=== PATIENT | female | born 1940 | race Hispanic/Latino ===

== ENCOUNTER 2018-03-30 05:45 | Inpatient (IN) | payer MEDICARE, BC ==
--- NOTE | 2018-03-30 06:01 | ED PDOC ---
Arrival/HPI - General Chief Complaint: Chest Pain Time Seen by Provider: 03/30/18 05:49 Historian: Patient - History of Present Illness Narrative History of Present Illness (Text): 03/30/18 05:53 A 78 year old female whose past medical history includes A- Fib, HTN, DM, presents to the emergency department with a complaint of sudden onset chest pressure. The patient notes that the discomfort woke her from her sleep at around 2 AM. She states that the chest pressure was associated with belching for which she took Pepcid and Aspirin with no relief of her symptoms. Patient notes that when she took a deep breath hours after, it was painful, which prompted her to come into the emergency department for further evaluation. The patient denies fevers, chills, headache, dizziness, sore throat, cough, shortness of breath, dyspnea on exertion, abdominal pain, nausea, vomiting, diarrhea, neck/back pain, urinary/bowel changes or any other complaint. PMD: Dr. Lopez Ice Hockey Coach: Dr. Escobar Time/Duration: 4-6 hours Symptom Onset: Sudden Symptom Course: Unchanged Activities at Onset: Rest, Light Context: Home Past Medical History - Provider Review Nursing Documentation Reviewed: Yes - Infectious Disease Hx of Infectious Diseases: None - Cardiac Hx Atrial Fibrillation: Yes Hx Hypertension: Yes - Endocrine/Metabolic Hx Diabetes Mellitus Type 2: Yes - Psychiatric Hx Substance Use: No - Past Surgical History Past Surgical History: No Previous - Anesthesia Hx Anesthesia: No Family/Social History - Physician Review Nursing Documentation Reviewed: Yes Family/Social History: No Known Family HX Smoking Status: Never Smoked Hx Alcohol Use: Yes Frequency of alcohol use: Socially Hx Substance Use: No Hx Substance Use Treatment: No Allergies/Home Meds Allergies/Adverse Reactions: Allergies No Known Allergies Allergy (Verified 12/15/11 13:33) Home Medications: Home Meds Medication Instructions Recorded Confirmed Alprazolam 0.5 mg PO DAILY 07/02/12 03/30/18 Aspirin [[facility]] 81 mg PO DAILY 07/02/12 03/30/18 Diltiazem HCl [Matzim LA] 240 mg PO DAILY 07/02/12 03/30/18 Nebivolol [Bystolic] 10 mg PO DAILY 07/02/12 03/30/18 Pitavastatin Calcium [Livalo] 4 mg PO DAILY 07/02/12 03/30/18 Dronedarone [Multaq] 400 mg PO DAILY 03/30/18 03/30/18 Dulaglutide [Trulicity] 0.5 ml SQ QWK 03/30/18 03/30/18 Empagliflozin [Jardiance] 10 mg PO DAILY 03/30/18 03/30/18 FLUoxetine [Prozac] 20 mg PO DAILY 03/30/18 03/30/18 metFORMIN [glucOPHAGE] 500 mg PO BID 03/30/18 03/30/18 Review of Systems - Physician Review All systems were reviewed & negative as marked: Yes - Review of Systems Constitutional: absent: Fevers ENT: absent: Sore Throat Respiratory: absent: SOB, Cough Cardiovascular: Chest Pain (Chest Pressure). absent: JUNIOR Gastrointestinal: Other (Belching). absent: Abdominal Pain, Stool Changes, Diarrhea, Nausea, Vomiting Genitourinary Female: absent: Urine Output Changes Musculoskeletal: absent: Back Pain, Neck Pain Neurological: absent: Headache, Dizziness Physical Exam Appearance: Positive for: Well-Appearing, Non-Toxic, Comfortable Pain Distress: None Mental Status: Positive for: Alert and Oriented X 3 - Systems Exam Head: Present: Atraumatic, Normocephalic Pupils: Present: PERRL Extroacular Muscles: Present: EOMI Conjunctiva: Present: Normal Mouth: Present: Moist Mucous Membranes Neck: Present: Normal Range of Motion Respiratory/Chest: Present: Clear to Auscultation, Good Air Exchange. No: Respiratory Distress, Accessory Muscle Use Cardiovascular: Present: Regular Rate and Rhythm, Normal S1, S2. No: Murmurs Abdomen: No: Tenderness, Distention, Peritoneal Signs Back: Present: Normal Inspection Upper Extremity: Present: Normal Inspection. No: Cyanosis, Edema Lower Extremity: Present: Normal Inspection. No: Edema Neurological: Present: GCS=15, CN II-XII Intact, Speech Normal Skin: Present: Warm, Dry, Normal Color. No: Rashes Psychiatric: Present: Alert, Oriented x 3, Normal Insight, Normal Concentration Medical Decision Making ED Course and Treatment: 03/30/18 06:02 Impression: A 78 year old female presents to the emergency department with a complaint of sudden onset chest pressure. Plan: -- Reassess and disposition Progress Notes: 03/30/18 07:00 Case endorsed to /pending labs/reassess/final disposition - RAD Interpretation Radiology Orders: 03/30/18 06:19 CHEST PORTABLE [RAD] Stat - EKG Interpretation EKG Interpretation (Text): 03/30/18 06:00 EKG-NSR@86,LVH,prolonged QT,NSSTT changes Interpreted by ED Physician: Yes Type: 12 lead EKG - Scribe Statement The provider has reviewed the documentation as recorded by the Scribe Diana Matias Provider Scribe Attestation: All medical record entries made by the Scribe were at my direction and personally dictated by me. I have reviewed the chart and agree that the record accurately reflects my personal performance of the history, physical exam, medical decision making, and the department course for this patient. I have also personally directed, reviewed, and agree with the discharge instructions and disposition. Disposition/Present on Arrival - Present on Arrival Any Indicators Present on Arrival: No History of DVT/PE: No History of Uncontrolled Diabetes: No Urinary Catheter: No History of Decub. Ulcer: No History Surgical Site Infection Following: None - Disposition Have Diagnosis and Disposition been Completed?: No Diagnosis: Chest pain Disposition Time: 07:00 Patient Problems: Current Active Problems Problem Status Onset Chest pain Acute Condition: STABLE Discharge Instructions (ExitCare): Chest Pain (ED) Referrals: Tim Lopez MD [Primary Care Provider] - Follow up with primary Forms: [employer] (Polish)
[2018-03-30 07:05] LABS: ALB/GLOB RATIO 1.4 (1.1-1.8); ALBUMIN 4.2 g/dL (3.0-4.8); ALT/SGPT 25 U/L (7-56); AST/SGOT 19 U/L (14-36); BLOOD UREA NITROGEN 18 mg/dL (7-21); CALCIUM 9.1 mg/dL (8.4-10.5); GFR NON-AFRICAN AMERICAN > 60
[2018-03-30 07:09] LABS: HEMOGLOBIN 14.1 g/dL (12.0-16.0); MEAN CELL VOLUME 92.7 fl (80.0-105.0); MEAN CORPUSCULAR HEMOGLOBIN 31.3 pg (25.0-35.0); MEAN CORPUSCULAR HGB CONC 33.7 g/dl (31.0-37.0); MEAN PLATELET VOLUME 10.2 fl (7.0-11.0); RBC 4.51 10^6/uL (3.5-6.1); RED CELL DISTRIBUTION WIDTH 12.9 % (11.5-14.5); WHITE BLOOD COUNT 13.1 10^3/ul (4.5-11.0)
--- NOTE | 2018-03-30 07:12 | ED PDOC ---
Physical Exam Vital Signs Temp Pulse Resp BP Pulse Ox 03/30/18 07:27 98.2 F 82 16 141/51 L 96 03/30/18 05:52 98.4 F 84 18 159/69 H 96 Medical Decision Making ED Course and Treatment: 03/30/18 07:28 Patient endorsed to me by Dr. Tanner. Patient re-evaluated on exam. Her lungs are clear. She has equal blood pressure and pulses in both upper extremities. Abdomen is soft and non tender. Initial ekg, troponin, and D-dimer are unremarkable. Patient will be admitted for further cardiac monitoring and examination for possible cardiac etiology of pain. On re-exam, patient states pain improved. She is not hypoxia. No pain radiating to her back. CXR unremarkable. Abdomen remains soft and nontender. Case discussed with Dr. Nj covering for DR. Lopez, accepts admission to telemetry bed. WBC elevated but afebrile and current exam NOT consistent with sepsis. Patient's symptoms and exam reviewed with Dr. Slater, her paper pattern inspector. Lovenox ordered. Risks/side effects reviewed with patient. - Lab Interpretations Lab Results: 03/30/18 06:45 03/30/18 06:45 Lab Results 03/30/18 08:00: TSH 3rd Generation 3.18 03/30/18 08:00: Triglycerides 65, Cholesterol 138, LDL Cholesterol Direct 54, HDL Cholesterol 54 03/30/18 06:45: WBC 13.1 H, RBC 4.51, Hgb 14.1, Hct 41.8, MCV 92.7, MCH 31.3, MCHC 33.7, RDW 12.9, Plt Count 234, MPV 10.2 03/30/18 06:45: Sodium 138, Potassium 4.0, Chloride 102, Carbon Dioxide 26, Anion Gap 15, BUN 18, Creatinine 0.8, Est GFR ( Amer) > 60, Est GFR (Non- Af Amer) > 60, Random Glucose 159 H, Calcium 9.1, Total Bilirubin 0.6, AST 19, ALT 25, Alkaline Phosphatase 72, Lactate Dehydrogenase 316 L, Total Creatine Kinase 52, Troponin I < 0.01, Total Protein 7.2, Albumin 4.2, Globulin 3.0, Albumin/Globulin Ratio 1.4 03/30/18 06:45: PT 10.1, INR 0.88, APTT 31.9, D-Dimer, Quantitative < 200 - RAD Interpretation Radiology Orders: 03/30/18 06:19 CHEST PORTABLE [RAD] Stat - EKG Interpretation EKG Interpretation (Text): 03/30/18 14:53 EKG at 0551 normal sinus rhythm rate of 86 with possible left atrial enlargement , prolonged qt Interpreted by ED Physician: Yes Type: 12 lead EKG - Medication Orders Current Medication Orders: Alprazolam (Xanax) 0.5 mg PO DAILY PRN; Protocol PRN Reason: Anxiety Aspirin (Ecotrin) 81 mg PO DAILY AASHISH Last Admin: 03/30/18 14:07 Dose: Diltiazem HCl (Cardizem Cd) 240 mg PO DAILY AASHISH Fluoxetine HCl (Prozac) 10 mg PO DAILY AASHISH Non-Formulary Medication (Bystolic) 10 mg PO DAILY AASHISH Dronedarone 400 Mg ((Home Med)) 400 mg PO BID AASHISH Pitavastatin Calcium (4 Mg (Home Med)) 4 mg PO DAILY AASHISH Discontinued Medications Aspirin (Aspirin Chewable) 81 mg PO STAT STA Stop: 03/30/18 07:28 Last Admin: 03/30/18 07:37 Dose: 81 mg Enoxaparin Sodium (Lovenox) 80 mg SC STAT STA PRN Reason: Protocol Stop: 03/30/18 09:28 Last Admin: 03/30/18 09:35 Dose: 80 mg Subcutaneous Administrations Document 03/30/18 09:35 SRE (Rec: 03/30/18 09:35 SRE [id number]) Injection Site MAR Injection Site Left Abdomen Charges for Administration # of Subcutaneous Administrations 1 Famotidine (Pepcid) 20 mg IVP STAT STA Stop: 03/30/18 07:28 Last Admin: 03/30/18 07:37 Dose: 20 mg IVP Administration Document 03/30/18 07:37 ROLL ON WORKER (Rec: 03/30/18 07:38 ROLL ON WORKER [facility] [id number]) Charges for Administration # of IVP Administrations 1 - Scribe Statement The provider has reviewed the documentation as recorded by the Mor [place] All medical record entries made by the Scribe were at my direction and personally dictated by me. I have reviewed the chart and agree that the record accurately reflects my personal performance of the history, physical exam, medical decision making, and the department course for this patient. I have also personally directed, reviewed, and agree with the discharge instructions and disposition. Disposition/Present on Arrival - Present on Arrival Any Indicators Present on Arrival: No History of DVT/PE: No History of Uncontrolled Diabetes: No Urinary Catheter: No History of Decub. Ulcer: No History Surgical Site Infection Following: None - Disposition Have Diagnosis and Disposition been Completed?: Yes Diagnosis: Chest pain Disposition: HOSPITALIZED Disposition Time: 09:00 Patient Plan: Admission, Telemetry Patient Problems: Current Active Problems Problem Status Onset Chest pain Acute Condition: STABLE
[2018-03-30 07:14] LABS: INR 0.88; PARTIAL THROMBOPLASTIN TIME 31.9 Seconds (25.1-36.5); PROTHROMBIN TIME 10.1 SECONDS (9.4-12.5)
[2018-03-30 07:17] LABS: TROPONIN I < 0.01 ng/mL
[2018-03-30 07:21] LABS: D DIMER < 200 ng/mlDDU (0-243)
--- NOTE | 2018-03-30 08:18 | RAD ---
Date of service: 03/30/2018 HISTORY: chest pain COMPARISON: 07/02/2012 FINDINGS: LUNGS: No active pulmonary disease. PLEURA: No significant pleural effusion identified, no pneumothorax apparent. CARDIOVASCULAR: Normal. OSSEOUS STRUCTURES: No significant abnormalities. VISUALIZED UPPER ABDOMEN: Normal. OTHER FINDINGS: None. IMPRESSION: No active disease.
[2018-03-30 09:21] VITALS: BMI 35.9
[2018-03-30] MEDS ORDERED: Enoxaparin 80 mg Syringe SC STA (09:27)
[2018-03-30 09:55] LABS: HDL CHOLESTEROL 54 mg/dL (29-60)
[2018-03-30 10:06] LABS: LDL CHOLESTEROL 54 mg/dL (0-129)
[2018-03-30 14:09] LABS: TROPONIN I < 0.01 ng/mL
[2018-03-30] MEDS ORDERED: Pneumococcal 23-Valent Vaccine IM ONE (17:04)
--- NOTE | 2018-03-30 17:38 | CARD ---
APPROVED REPORT Date of service: 03/30/2018 EKG Measurement Heart [id number] <Conclusion> Normal sinus rhythm Possible Left atrial enlargement Left ventricular hypertrophy Prolonged QT Abnormal ECG
[2018-03-30] MEDS ORDERED: DRONEDARONE 400 MG PO SCH ×3 (18:00→19:40)
[2018-03-30] MEDS ORDERED: diltiaZEM 240 mg/24 Hours CD Cap PO STA (18:44)
--- NOTE | 2018-03-30 18:56 | CARD ---
APPROVED REPORT Date of service: 03/30/2018 EXAM: Two-dimensional and M-mode echocardiogram with Doppler and color Doppler. INDICATION LV Function:SystolicDiastolic Chest Pain 2D DIMENSIONS Left Atrium (2D)3.7 (1.6-4.0cm)IVSd1.0 (0.7-1.1cm) LVDd4.4 (3.9-5.9cm)PWd1.1 (0.7-1.1cm) LVDs3.1 (2.5-4.0cm)FS (%) 29.9 % LVEF (%)57.4 (>50%) M-Mode DIMENSIONS Aortic Root1.90 (2.2-3.7cm)Aortic Cusp Exc.0.90 (1.5-2.0cm) Aortic Valve AoV Peak Aplcnpwx332.0cm/Cha Peak GR.13mmHg Mitral Valve MV E Kcnhpazk45.6cm/sMV A Bhetavhw253.0cm/sE/A ratio0.7 TDI E/Lateral E'0.0E/Medial E'0.0 Tricuspid Valve TR Peak Khirwswg843im/sRAP [id number] Peak Gr.21mmHg [id number] LEFT VENTRICLE The left ventricle is normal size. There is normal left ventricular wall thickness. The left ventricular function is normal.EF-55% There is mild hypokinesis in the mid-inferolateral wall. Transmitral Doppler flow pattern is Grade III-reversible restrictive diastolic dysfunction. No left ventricle thrombus noted on this study. There is no ventricular septal defect visualized. There is no left ventricular aneurysm. There is no mass noted in the left ventricle. RIGHT VENTRICLE The right ventricle is normal size. There is normal right ventricular wall thickness. The right ventricular systolic function is normal. ATRIA The left atrium size is normal. The right atrium size is normal. The interatrial septum is intact with no evidence for an atrial septal defect. AORTIC VALVE The aortic valve is mildly thickened but opens well. No aortic regurgitation is present. Aortic sclerosisd, VS mild There is no aortic valvular vegetation. MITRAL VALVE The mitral valve is thickened but opens well. Mitral regurgitation is trace to mild. There is no mitral valve stenosis. There is no evidence of mitral valve prolapse. TRICUSPID VALVE The tricuspid valve leaflets are thickened , but open well. There is mild tricuspid regurgitation.RVSP-31 mmof Hg There is no tricuspid valve stenosis. There is no tricuspid valve prolapse or vegetation. PULMONIC VALVE The pulmonary valve is normal in structure. There is trace pulmonic valvular regurgitation. There is no pulmonic valvular stenosis. GREAT VESSELS The aortic root is normal in size. The ascending aorta is normal in size. The pulmonary artery is normal. The IVC is normal in size and collapses >50% with inspiration. PERICARDIAL EFFUSION There is no pleural effusion. There is no pericardial effusion. <Conclusion> Normal Chamber size,EF=55% Mitral regurgitation is trace to mild. There is mild tricuspid regurgitation.RVSP-31 mmof Hg There is trace pulmonic valvular regurgitation. The IVC is normal in size and collapses >50% with inspiration. There is no pericardial effusion.
[2018-03-30 20:25] LABS: TROPONIN I < 0.01 ng/mL
[2018-03-30] MEDS: diltiaZEM IVPB 100mg in NS 100 ML IV PRN (21:26)
[2018-03-30] MEDS: Enoxaparin 80 mg Syringe SC SCH (21:27)
[2018-03-31] MEDS: Insulin Reg-LOW-Coverage SC SCH ×5 (01:15→21:46)
[2018-03-31] MEDS: diltiaZEM IVPB 100mg in NS 100 ML IV PRN (05:05)
[2018-03-31 07:21] LABS: BASO # 0.03 K/mm3 (0.0-2.0); BASO % 0.3 % (0.0-3.0); EOS # 0.2 (0.0-0.7); EOS % 2.3 % (1.5-5.0); GRAN # 5.97 (1.4-6.5); GRAN % 64.6 % (50.0-68.0); HEMOGLOBIN 14.7 g/dL (12.0-16.0); LYMPH # 2.1 (1.2-3.4); LYMPH % 22.6 % (22.0-35.0); MEAN CELL VOLUME 92.5 fl (80.0-105.0); MEAN CORPUSCULAR HEMOGLOBIN 31.4 pg (25.0-35.0); MEAN CORPUSCULAR HGB CONC 33.9 g/dl (31.0-37.0); MEAN PLATELET VOLUME 10.6 fl (7.0-11.0); MONO # 0.9 (0.1-0.6); MONO % 10.2 % (1.0-6.0); RBC 4.68 10^6/uL (3.5-6.1); WHITE BLOOD COUNT 9.2 10^3/ul (4.5-11.0)
[2018-03-31 07:42] LABS: ALB/GLOB RATIO 1.3 (1.1-1.8); ALT/SGPT 25 U/L (7-56); AST/SGOT 19 U/L (14-36); BLOOD UREA NITROGEN 13 mg/dL (7-21); CALCIUM 8.8 mg/dL (8.4-10.5); GFR NON-AFRICAN AMERICAN > 60; HDL CHOLESTEROL 49 mg/dL (29-60)
--- NOTE | 2018-03-31 07:42 | CON ---
DATE: 03/30/2018 CONSULTATION REASON FOR CONSULTATION AND FOLLOW UP: Chest pain, funny sensation in the chest. BRIEF CLINICAL HISTORY: This is a 78-year-old female with a past medical history significant for paroxysmal atrial fibrillation, on Multaq; diabetes; hypertension; hyperlipidemia; thyrotoxicosis; noncompliance with office visit and refused the stress test in the past, last stress test in 2014, came in with the complaint of chest pain, feeling heaviness in the chest which is continued since and increases when taking a deep breath, also feeling the fluttering sensation in the chest, came to the emergency room. PAST HISTORY: Significant for paroxysmal atrial fibrillation, thyrotoxicosis, diabetes, hypertension, hyperlipidemia. SOCIAL HISTORY: Denies smoking. Denies any history of alcohol abuse. CURRENT MEDICATIONS: Patient is taking at home, Trulicity, Xanax, aspirin, Multaq 400 mg daily, Livalo, Jardiance/metformin, Bystolic, and Cardizem 240 mg daily. ALLERGIES: NO KNOWN DRUG ALLERGY. CURRENT CARDIAC WORKUP: Patient refused stress test. Last stress test in 2011 was negative. REVIEW OF SYSTEMS: As per HPI. PHYSICAL EXAMINATION: VITAL SIGNS: As follows: Height of the patient 5 feet 1 inch, weight of the patient 190 pounds, body mass index 35.9 kg/sq m. Rest of the vitals, temperature afebrile, heart rate 81, blood pressure 127/53. HEENT: PERRLA. Extraocular muscles intact. NECK: Supple. No carotid bruit or thyromegaly. CHEST: Clear to auscultation. HEART: S1 and S2 regular. ABDOMEN: Soft. EXTREMITIES: Clubbing and cyanosis, negative. LABORATORY DATA: Blood workup as follows: WBC 13.9, hemoglobin 14.9, hematocrit 41.8, platelet count 234. Chemistry showed sodium 138, potassium 4, chloride 102, carbon dioxide , anion gap of 15, BUN 18, creatinine 0.8. EKG showed normal sinus rhythm, no acute ST-T changes noted. IMPRESSION: A 78-year-old female with a past medical history of diabetes, hypertension, hyperlipidemia, paroxysmal atrial fibrillation, refused stress test in the past. RECOMMENDATION: We will resume back medication. Follow up closely. If the patient remains stable, possible discharge home tomorrow and consider a stress test as outpatient. Get lipid profile, TSH, hemoglobin A1c and echo. We will give a dose of Lovenox now. Patient got Lovenox at night. We will give another dose of Lovenox at 9 p.m. We will follow with you. Further recommendation depending on the hospital course. If the CPK, troponin remain negative, patient can be discharged. Follow up as outpatient stress test. Thank you, Dr. Nj, for providing us the opportunity in taking care of patient, Ankita Mcmillan. Magdalena Slater MD
[2018-03-31 07:47] LABS: LDL CHOLESTEROL 50 mg/dL (0-129)
[2018-03-31] MEDS: Enoxaparin 80 mg Syringe SC SCH (08:32)
[2018-03-31] MEDS: PITAVASTATIN CALCIUM 4 MG PO SCH (09:26)
[2018-03-31] MEDS ORDERED: BYSTOLIC 10 MG PO SCH (10:00)
[2018-03-31] MEDS ORDERED: diltiaZEM 240 mg/24 Hours CD Cap PO SCH (10:00)
--- NOTE | 2018-03-31 10:09 | CP.PCM.HP ---
<Juan Gupta - Last Filed: 03/31/18 10:04> History of Present Illness - History of Present Illness History of Present Illness: 78 year old female with past medical history paroxysmal a-fib, HTN, DM type 2, HLD, and thyroxicosis presented to the hospital for chest pain which woke her up from her sleep. Patient states chest pain began getting worse and then she presented to the hospital. Patient denies radiation of chest pain, but pain was located substernally. Patient also mentioned having palpitations. Patient currently feeling well, although overnight she did have palpitations again. Patient denies chest pain, shortness of breath, nausea, vomiting, diarrhea, fever, chills, changes in vision, heat/cold intolerance, numbness, weakness, dysuria, easy bleeding or bruising. PMH: As above Family hx: Noncontributory Social Hx: Denies tobacco, alcohol, or illicit drug use Allergies: NKDA Medications: Reviewed, as per MAR Present on Admission - Present on Admission Any Indicators Present on Admission: No Review of Systems - Review of Systems Review of Systems: 12 point ROS as per HPI, otherwise negative Past Patient History - Infectious Disease Hx of Infectious Diseases: None - Past Social History Smoking Status: Never Smoked - CARDIAC Hx Cardiac Disorders: Yes Hx Cardia Arrhythmia: Yes (AFIB) Hx Hypertension: Yes - PULMONARY Hx Respiratory Disorders: Yes Hx Bronchitis: Yes Hx Pneumonia: Yes - NEUROLOGICAL Hx Neurological Disorder: No - HEENT Hx HEENT Problems: No - RENAL Hx Chronic Kidney Disease: No - ENDOCRINE/METABOLIC Hx Endocrine Disorders: Yes Hx Diabetes Mellitus Type 2: Yes - HEMATOLOGICAL/ONCOLOGICAL Hx Blood Disorders: No - INTEGUMENTARY Hx Dermatological Problems: Yes (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) - MUSCULOSKELETAL/RHEUMATOLOGICAL Hx Musculoskeletal Disorders: No Hx Falls: No - GASTROINTESTINAL Hx Gastrointestinal Disorders: Yes (COLITIS,GI BLEED) - GENITOURINARY/GYNECOLOGICAL Hx Genitourinary Disorders: No - PSYCHIATRIC Hx Psychophysiologic Disorder: Yes Hx Anxiety: Yes Hx Depression: Yes Hx Substance Use: No - SURGICAL HISTORY Hx Surgeries: Yes (LEFT 2ND TOE AMPUTATION.) Hx Hysterectomy: Yes - ANESTHESIA Hx Anesthesia: No Meds Allergies/Adverse Reactions: Allergies Allergy/AdvReac Type Severity Reaction Status Date / Time No Known Allergies Allergy Verified 03/30/18 14:34 Physical Exam - Constitutional Appears: Non-toxic, No Acute Distress - Head Exam Head Exam: ATRAUMATIC, NORMAL INSPECTION, NORMOCEPHALIC - Eye Exam Eye Exam: EOMI, Normal appearance - ENT Exam ENT Exam: Mucous Membranes Moist, Normal Exam - Respiratory Exam Respiratory Exam: Clear to Auscultation Bilateral, NORMAL BREATHING PATTERN - Cardiovascular Exam Cardiovascular Exam: Irregular Rhythm, +S1, +S2 - GI/Abdominal Exam GI & Abdominal Exam: Normal Bowel Sounds, Soft. absent: Tenderness - Extremities Exam Extremities exam: Positive for: normal inspection. Negative for: calf tenderness, pedal edema - Neurological Exam Neurological exam: Alert, CN II-XII Intact, Oriented x3 - Psychiatric Exam Psychiatric exam: Normal Affect, Normal Mood - Skin Skin Exam: Intact, Normal Color, Warm Results - Vital Signs Recent Vital Signs: Last Vital Signs Temp 97.7 F 03/31/18 06:00 Pulse 86 03/31/18 09:25 Resp 19 03/31/18 06:00 BP 113/57 L 03/31/18 09:25 Pulse Ox 95 03/31/18 06:00 - Labs Result Diagrams: 03/31/18 06:00 03/31/18 06:00 Labs: Laboratory Results - last 24 hr 03/30/18 03/30/18 03/30/18 13:30 16:37 19:56 WBC RBC Hgb Hct MCV MCH MCHC RDW Plt Count MPV Gran % Lymph % (Auto) Nelson % (Auto) Eos % (Auto) Baso % (Auto) Gran # Lymph # (Auto) Nelson # (Auto) Eos # (Auto) Baso # (Auto) Sodium Potassium Chloride Carbon Dioxide Anion Gap BUN Creatinine Est GFR ( Amer) Est GFR (Non-Af Amer) POC Glucose (mg/dL) 126 H Random Glucose Calcium Phosphorus Magnesium Total Bilirubin AST ALT Alkaline Phosphatase Lactate Dehydrogenase 301 L 298 L Total Creatine Kinase 66 72 Troponin I < 0.01 < 0.01 Total Protein Albumin Globulin Albumin/Globulin Ratio Triglycerides Cholesterol LDL Cholesterol Direct HDL Cholesterol TSH 3rd Generation 03/30/18 03/31/18 03/31/18 21:14 06:00 06:00 WBC 9.2 D RBC 4.68 Hgb 14.7 Hct 43.3 MCV 92.5 MCH 31.4 MCHC 33.9 RDW 13.0 Plt Count 237 MPV 10.6 Gran % 64.6 Lymph % (Auto) 22.6 Nelson % (Auto) 10.2 H Eos % (Auto) 2.3 Baso % (Auto) 0.3 Gran # 5.97 Lymph # (Auto) 2.1 Nelson # (Auto) 0.9 H Eos # (Auto) 0.2 Baso # (Auto) 0.03 Sodium 138 Potassium 4.0 Chloride 103 Carbon Dioxide 26 Anion Gap 13 BUN 13 Creatinine 0.8 Est GFR ( Amer) > 60 Est GFR (Non-Af Amer) > 60 POC Glucose (mg/dL) 159 H Random Glucose 144 H Calcium 8.8 Phosphorus 4.0 Magnesium 2.3 H Total Bilirubin 1.0 AST 19 ALT 25 Alkaline Phosphatase 76 Lactate Dehydrogenase Total Creatine Kinase Troponin I Total Protein 7.0 Albumin 4.0 Globulin 3.0 Albumin/Globulin Ratio 1.3 Triglycerides 100 Cholesterol 133 LDL Cholesterol Direct 50 HDL Cholesterol 49 TSH 3rd Generation 03/31/18 03/31/18 06:00 07:38 WBC RBC Hgb Hct MCV MCH MCHC RDW Plt Count MPV Gran % Lymph % (Auto) Nelson % (Auto) Eos % (Auto) Baso % (Auto) Gran # Lymph # (Auto) Nelson # (Auto) Eos # (Auto) Baso # (Auto) Sodium Potassium Chloride Carbon Dioxide Anion Gap BUN Creatinine Est GFR ( Amer) Est GFR (Non-Af Amer) POC Glucose (mg/dL) 158 H Random Glucose Calcium Phosphorus Magnesium Total Bilirubin AST ALT Alkaline Phosphatase Lactate Dehydrogenase Total Creatine Kinase Troponin I Total Protein Albumin Globulin Albumin/Globulin Ratio Triglycerides Cholesterol LDL Cholesterol Direct HDL Cholesterol TSH 3rd Generation 2.32 Assessment & Plan - Assessment and Plan (Free Text) Plan: 1. Chest pain, improving 2. Atrial flutter 3. HTN 4. HLD 5. DM type 2 Patient with atrial flutter overnight and placed on Cardizem as per cardiology. Will await further recommendations as per cardiology. Patient received echocardiogram yesterday which showed normal EF and mild TR and MR. Patient will be continued on her home medications and have insulin sliding scale for her diabetes. Patient is also on oral cardizem at home for her a-fib. Will continue to monitor closely. Alonso, PGY-3 <Dom Nj - Last Filed: 03/31/18 20:12> Results - Vital Signs Recent Vital Signs: Last Vital Signs Temp 98 F 09/15/18 12:00 Pulse 90 03/31/18 18:00 Resp 20 03/31/18 12:00 BP 117/51 L 03/31/18 17:23 Pulse Ox 95 03/31/18 06:00 - Labs Result Diagrams: 03/31/18 06:00 03/31/18 06:00 Labs: Laboratory Results - last 24 hr 03/30/18 03/30/18 03/31/18 19:56 21:14 06:00 WBC 9.2 D RBC 4.68 Hgb 14.7 Hct 43.3 MCV 92.5 MCH 31.4 MCHC 33.9 RDW 13.0 Plt Count 237 MPV 10.6 Gran % 64.6 Lymph % (Auto) 22.6 Nelson % (Auto) 10.2 H Eos % (Auto) 2.3 Baso % (Auto) 0.3 Gran # 5.97 Lymph # (Auto) 2.1 Nelson # (Auto) 0.9 H Eos # (Auto) 0.2 Baso # (Auto) 0.03 Sodium Potassium Chloride Carbon Dioxide Anion Gap BUN Creatinine Est GFR ( Amer) Est GFR (Non-Af Amer) POC Glucose (mg/dL) 159 H Random Glucose Calcium Phosphorus Magnesium Total Bilirubin AST ALT Alkaline Phosphatase Lactate Dehydrogenase 298 L Total Creatine Kinase 72 Troponin I < 0.01 Total Protein Albumin Globulin Albumin/Globulin Ratio Triglycerides Cholesterol LDL Cholesterol Direct HDL Cholesterol TSH 3rd Generation 03/31/18 03/31/18 03/31/18 06:00 06:00 07:38 WBC RBC Hgb Hct MCV MCH MCHC RDW Plt Count MPV Gran % Lymph % (Auto) Nelson % (Auto) Eos % (Auto) Baso % (Auto) Gran # Lymph # (Auto) Nelson # (Auto) Eos # (Auto) Baso # (Auto) Sodium 138 Potassium 4.0 Chloride 103 Carbon Dioxide 26 Anion Gap 13 BUN 13 Creatinine 0.8 Est GFR ( Amer) > 60 Est GFR (Non-Af Amer) > 60 POC Glucose (mg/dL) 158 H Random Glucose 144 H Calcium 8.8 Phosphorus 4.0 Magnesium 2.3 H Total Bilirubin 1.0 AST 19 ALT 25 Alkaline Phosphatase 76 Lactate Dehydrogenase Total Creatine Kinase Troponin I Total Protein 7.0 Albumin 4.0 Globulin 3.0 Albumin/Globulin Ratio 1.3 Triglycerides 100 Cholesterol 133 LDL Cholesterol Direct 50 HDL Cholesterol 49 TSH 3rd Generation 2.32 03/31/18 03/31/18 11:21 16:52 WBC RBC Hgb Hct MCV MCH MCHC RDW Plt Count MPV Gran % Lymph % (Auto) Nelson % (Auto) Eos % (Auto) Baso % (Auto) Gran # Lymph # (Auto) Nelson # (Auto) Eos # (Auto) Baso # (Auto) Sodium Potassium Chloride Carbon Dioxide Anion Gap BUN Creatinine Est GFR ( Amer) Est GFR (Non-Af Amer) POC Glucose (mg/dL) 161 H 101 Random Glucose Calcium Phosphorus Magnesium Total Bilirubin AST ALT Alkaline Phosphatase Lactate Dehydrogenase Total Creatine Kinase Troponin I Total Protein Albumin Globulin Albumin/Globulin Ratio Triglycerides Cholesterol LDL Cholesterol Direct HDL Cholesterol TSH 3rd Generation Assessment & Plan - Assessment and Plan (Free Text) Plan: Pt seen and examined. I have reviewed the note of the medical investigator and agree with it. I have discussed the assessment and plan with the resident. I have reviewed the patient's labs and medications. Pt admitted with CP and A flutter. She has been placed on tele for further evaluation. She is on Cardizem for her tachycardia. Will get Cardiology evaluation. ISS for DM-2. Trop negative.
--- NOTE | 2018-03-31 12:55 | PN ---
DATE: 03/31/2018 SUBJECTIVE: The patient is reverted back to atrial fibrillation with a high heart rate despite antiarrhythmic. Currently, the patient is back to normal sinus rhythm after being placed on Cardizem. PHYSICAL EXAMINATION: VITAL SIGNS: Blood pressure is 113/60, the heart rate is in the 80s, normal sinus rhythm. NECK: Negative JVD. LUNGS: Without rales. HEART: S1, S2. EXTREMITIES: Without edema. LABORATORY DATA: Hemoglobin is 14.7. Chemistries, BUN and creatinine are unremarkable. Glucose is 144. Troponin is negative x1. IMPRESSION: 1. Paroxysmal atrial fibrillation. 2. Diabetes mellitus. 3. Hypertension. 4. Hyperlipidemia. PLAN: We will start the patient on Eliquis to prevent thromboembolic phenomenon. We will change her antiarrhythmic to sotalol. We will discontinue her diltiazem and begin sotalol. Karthikeyan Nolen MD
[2018-04-01] MEDS: Insulin Reg-LOW-Coverage SC SCH ×4 (08:48→21:33)
[2018-04-01] MEDS: PITAVASTATIN CALCIUM 4 MG PO SCH (09:28)
--- NOTE | 2018-04-01 12:21 | PN ---
DATE: 04/01/2018 SUBJECTIVE: The patient has no complaints of any chest pain. No shortness of breath. Her heart rate is better controlled. She has no complaints. PHYSICAL EXAMINATION: VITAL SIGNS: Temperature is 98, pulse of 69, blood pressure 146/57, respirations 20. GENERAL: The patient is lying in bed, flat, comfortable. HEENT: No oral lesion. Anicteric sclerae. Moist mucosa. NECK: No JVD, adenopathy, or thyromegaly. CARDIOVASCULAR: S1 and S2, regular. No murmurs, rubs, or gallops. LUNGS: Clear to auscultation bilaterally. No wheeze, rales, or rhonchi. ABDOMEN: Bowel sounds are positive. Soft, nontender and nondistended. EXTREMITIES: No cyanosis, clubbing or edema. ASSESSMENT: 1. Atrial fibrillation. 2. Diabetes type 2. 3. Hypertension. 4. Dyslipidemia. PLAN: The patient is currently comfortable. She has negative troponins. The patient is on fluoxetine, she was started on Eliquis by Dr. Nolen who is covering for Dr. Slater of Cardiology. The patient is going to be placed on sotalol. She is on a heart-healthy diet. I did explain to her the importance of anticoagulation to prevent the stroke. I also explained to her the risk of having bleeding, which can be mild, moderate or severe including life-threatening bleeding. The patient does understand and is willing to continue with taking the medications. She may need a stress test. I will await Cariology input regarding this. Dom Nj MD
[2018-04-02 06:16] VITALS: O2SAT 96
[2018-04-02] MEDS: Insulin Reg-LOW-Coverage SC SCH ×2 (08:40→13:19)
[2018-04-02 12:48] VITALS: BP 157/76; PULSE 62; RESP 21; TEMP 97.8
[2018-04-02] MEDS: PITAVASTATIN CALCIUM 4 MG PO SCH (13:19)
--- NOTE | 2018-04-02 13:35 | PN ---
DATE: 04/02/2018 REASON FOR THE CONSULTATION: Followup paroxysmal atrial fibrillation, chest pain, rule out underlying coronary artery disease. Converted to normal sinus. Denies any chest pain now. Denies any shortness of breath. OBJECTIVE: GENERAL: Lying flat on the bed, not in any apparent distress. VITAL SIGNS: Temperature afebrile, heart rate 60, blood pressure 139/57. HEENT: PERRLA. Extraocular muscles intact. NECK: Supple. No carotid bruits or thyromegaly. CHEST: Clear to auscultation. HEART: S1 and S2 regular. ABDOMEN: Soft. EXTREMITIES: Clubbing and cyanosis negative. LABORATORY DATA: Blood workup as follows; WBC 9.8, hemoglobin 14.2, hematocrit 43.3, platelet count 237. Chemistry shows sodium 130, potassium 4, chloride 103, carbon dioxide 26, anion gap of 13, BUN 13, creatinine 0.8. Troponin remains negative. IMPRESSION: A 78-year-old female with past medical history of paroxysmal atrial fibrillation, hypertension, admitted with heaviness in the chest, palpitation. Initial EKG revealed normal sinus. Later on, the patient went into atrial fibrillation while in the hospital, started on Cardizem, converted to normal sinus. Over the weekend, seen by Dr. Nolen and Cardizem discontinued and changed to sotalol. Currently, the patient is on sotalol and Eliquis. So far, no evidence of acute myocardial infarction. History of hypertension, hyperlipidemia, history of paroxysmal atrial fibrillation. Refused stress test in the past. The patient had echocardiography on 03/30/2018 that revealed ejection fraction 55%, trace to mild mitral regurgitation, mild tricuspid regurgitation, right ventricular systolic pressure 31, trace pulmonary insufficiency. Discussed with the patient in length. Ultimately, the patient is agreeable to proceed for a stress test. Further recommendation after the stress test. In the interim, continue sotalol 80 mg b.i.d. and we will discontinue Multaq. Continue Eliquis. After the stress test, we will reevaluate and possible discharge today. Thank you, Dr. Nj, for providing us the opportunity in taking care of the patient, Ankita Mcmillan. Magdalena Slater MD cc: Dom Nj MD [facility] # [id number]
--- NOTE | 2018-04-02 14:41 | CP.PCM.DIS ---
<Juan Gupta - Last Filed: 04/02/18 14:38> Provider - Provider Date of Admission: 04/01/18 11:11 Attending physician: Dom Nj MD Primary care physician: Tim Lopez MD Consults: Cardio - Dr. Slater Time Spent in preparation of Discharge (in minutes): 45 Diagnosis - Discharge Diagnosis (1) Paroxysmal A-fib Status: Chronic (2) Chest pain Status: Resolved Hospital Course - Lab Results Lab Results: Most Recent Lab Values WBC 9.2 10^3/ul (4.5-11.0) D 03/31/18 06:00 RBC 4.68 10^6/uL (3.5-6.1) 03/31/18 06:00 Hgb 14.7 g/dL (12.0-16.0) 03/31/18 06:00 Hct 43.3 % (36.0-48.0) 03/31/18 06:00 MCV 92.5 fl (80.0-105.0) 03/31/18 06:00 MCH 31.4 pg (25.0-35.0) 03/31/18 06:00 MCHC 33.9 g/dl (31.0-37.0) 03/31/18 06:00 RDW 13.0 % (11.5-14.5) 03/31/18 06:00 Plt Count 237 10^3/uL (120.0-450.0) 03/31/18 06:00 MPV 10.6 fl (7.0-11.0) 03/31/18 06:00 Gran % 64.6 % (50.0-68.0) 03/31/18 06:00 Lymph % (Auto) 22.6 % (22.0-35.0) 03/31/18 06:00 Sargent % (Auto) 10.2 % (1.0-6.0) H 03/31/18 06:00 Eos % (Auto) 2.3 % (1.5-5.0) 03/31/18 06:00 Baso % (Auto) 0.3 % (0.0-3.0) 03/31/18 06:00 Gran # 5.97 (1.4-6.5) 09/15/18 06:00 Lymph # (Auto) 2.1 (1.2-3.4) 03/31/18 06:00 Sargent # (Auto) 0.9 (0.1-0.6) H 03/31/18 06:00 Eos # (Auto) 0.2 (0.0-0.7) 03/31/18 06:00 Baso # (Auto) 0.03 K/mm3 (0.0-2.0) 03/31/18 06:00 PT 10.1 SECONDS (9.4-12.5) 03/30/18 06:45 INR 0.88 03/30/18 06:45 APTT 31.9 Seconds (25.1-36.5) 03/30/18 06:45 D-Dimer, Quantitative < 200 ng/mlDDU (0-243) 03/30/18 06:45 Sodium 138 mmol/L (132-148) 03/31/18 06:00 Potassium 4.0 mmol/L (3.6-5.0) 03/31/18 06:00 Chloride 103 mmol/L (98-107) 03/31/18 06:00 Carbon Dioxide 26 mmol/L (21-33) 03/31/18 06:00 Anion Gap 13 (10-20) 03/31/18 06:00 BUN 13 mg/dL (7-21) 03/31/18 06:00 Creatinine 0.8 mg/dl (0.7-1.2) 03/31/18 06:00 Est GFR ( Amer) > 60 03/31/18 06:00 Est GFR (Non-Af Amer) > 60 03/31/18 06:00 POC Glucose (mg/dL) 155 mg/dL (65-110) H 04/02/18 07:42 Random Glucose 144 mg/dL (70-110) H 03/31/18 06:00 Hemoglobin A1c 6.5 % (4.2-6.5) 03/31/18 06:00 Calcium 8.8 mg/dL (8.4-10.5) 03/31/18 06:00 Phosphorus 4.0 mg/dL (2.5-4.5) 03/31/18 06:00 Magnesium 2.3 mg/dL (1.7-2.2) H 03/31/18 06:00 Total Bilirubin 1.0 mg/dL (0.2-1.3) 03/31/18 06:00 AST 19 U/L (14-36) 03/31/18 06:00 ALT 25 U/L (7-56) 03/31/18 06:00 Alkaline Phosphatase 76 U/L (38-126) 03/31/18 06:00 Lactate Dehydrogenase 298 U/L (333-699) L 03/30/18 19:56 Total Creatine Kinase 72 U/L (35-230) 03/30/18 19:56 Troponin I < 0.01 ng/mL 03/30/18 19:56 Total Protein 7.0 g/dL (5.8-8.3) 03/31/18 06:00 Albumin 4.0 g/dL (3.0-4.8) 03/31/18 06:00 Globulin 3.0 gm/dL 03/31/18 06:00 Albumin/Globulin Ratio 1.3 (1.1-1.8) 03/31/18 06:00 Triglycerides 100 mg/dL (35-160) 03/31/18 06:00 Cholesterol 133 mg/dL (130-200) 03/31/18 06:00 LDL Cholesterol Direct 50 mg/dL (0-129) 03/31/18 06:00 HDL Cholesterol 49 mg/dL (29-60) 03/31/18 06:00 TSH 3rd Generation 2.32 mIU/mL (0.46-4.68) 03/31/18 06:00 - Hospital Course Hospital Course: 78 year old female with past medical history paroxysmal a-fib, HTN, DM type 2, HLD, and thyroxicosis presented to the hospital for chest pain. Patient was found to have troponins negative x3. Patient was seen in the hospital by cardiology who placed the patient on sotalol and Eliquis. Patient also had a stress test performed, where preliminary results are negative. Patient will follow up with PMD and third rigger within 1 week. Discharge Exam - Head Exam Head Exam: ATRAUMATIC, NORMAL INSPECTION, NORMOCEPHALIC - Respiratory Exam Respiratory Exam: NORMAL BREATHING PATTERN, UNREMARKABLE - Cardiovascular Exam Cardiovascular Exam: RRR, +S1, +S2 - GI/Abdominal Exam GI & Abdominal Exam: Normal Bowel Sounds, Soft, Unremarkable. absent: Tenderness - Extremities Exam Extremities exam: normal inspection - Neurological Exam Neurological exam: Alert, Oriented x3 - Psychiatric Exam Psychiatric exam: Normal Affect, Normal Mood - Skin Skin Exam: Intact, Normal Color, Warm Discharge Plan - Follow Up Plan Condition: STABLE Disposition: HOME/ ROUTINE Instructions: Chest Pain (DC), Atrial Fibrillation (DC) Additional Instructions: Follow up with PMD within 1 week Follow up with third rigger within 1 week Discontinue Metformin for 2 days, then resume Referrals: Tim Lopez MD [Primary Care Provider] - <oDm Nj - Last Filed: 04/02/18 20:32> Provider - Provider Date of Admission: 04/01/18 11:11 Attending physician: Dom Nj MD Primary care physician: Tim Lopez MD Hospital Course - Lab Results Lab Results: Most Recent Lab Values WBC 9.2 10^3/ul (4.5-11.0) D 03/31/18 06:00 RBC 4.68 10^6/uL (3.5-6.1) 03/31/18 06:00 Hgb 14.7 g/dL (12.0-16.0) 03/31/18 06:00 Hct 43.3 % (36.0-48.0) 03/31/18 06:00 MCV 92.5 fl (80.0-105.0) 03/31/18 06:00 MCH 31.4 pg (25.0-35.0) 03/31/18 06:00 MCHC 33.9 g/dl (31.0-37.0) 03/31/18 06:00 RDW 13.0 % (11.5-14.5) 03/31/18 06:00 Plt Count 237 10^3/uL (120.0-450.0) 03/31/18 06:00 MPV 10.6 fl (7.0-11.0) 03/31/18 06:00 Gran % 64.6 % (50.0-68.0) 03/31/18 06:00 Lymph % (Auto) 22.6 % (22.0-35.0) 03/31/18 06:00 Sargent % (Auto) 10.2 % (1.0-6.0) H 03/31/18 06:00 Eos % (Auto) 2.3 % (1.5-5.0) 03/31/18 06:00 Baso % (Auto) 0.3 % (0.0-3.0) 03/31/18 06:00 Gran # 5.97 (1.4-6.5) 03/31/18 06:00 Lymph # (Auto) 2.1 (1.2-3.4) 03/31/18 06:00 Sargent # (Auto) 0.9 (0.1-0.6) H 03/31/18 06:00 Eos # (Auto) 0.2 (0.0-0.7) 03/31/18 06:00 Baso # (Auto) 0.03 K/mm3 (0.0-2.0) 03/31/18 06:00 PT 10.1 SECONDS (9.4-12.5) 03/30/18 06:45 INR 0.88 03/30/18 06:45 APTT 31.9 Seconds (25.1-36.5) 03/30/18 06:45 D-Dimer, Quantitative < 200 ng/mlDDU (0-243) 03/30/18 06:45 Sodium 138 mmol/L (132-148) 03/31/18 06:00 Potassium 4.0 mmol/L (3.6-5.0) 03/31/18 06:00 Chloride 103 mmol/L (98-107) 03/31/18 06:00 Carbon Dioxide 26 mmol/L (21-33) 03/31/18 06:00 Anion Gap 13 (10-20) 03/31/18 06:00 BUN 13 mg/dL (7-21) 03/31/18 06:00 Creatinine 0.8 mg/dl (0.7-1.2) 03/31/18 06:00 Est GFR ( Amer) > 60 03/31/18 06:00 Est GFR (Non-Af Amer) > 60 03/31/18 06:00 POC Glucose (mg/dL) 155 mg/dL (65-110) H 04/02/18 07:42 Random Glucose 144 mg/dL (70-110) H 03/31/18 06:00 Hemoglobin A1c 6.5 % (4.2-6.5) 03/31/18 06:00 Calcium 8.8 mg/dL (8.4-10.5) 03/31/18 06:00 Phosphorus 4.0 mg/dL (2.5-4.5) 03/31/18 06:00 Magnesium 2.3 mg/dL (1.7-2.2) H 03/31/18 06:00 Total Bilirubin 1.0 mg/dL (0.2-1.3) 03/31/18 06:00 AST 19 U/L (14-36) 03/31/18 06:00 ALT 25 U/L (7-56) 03/31/18 06:00 Alkaline Phosphatase 76 U/L (38-126) 03/31/18 06:00 Lactate Dehydrogenase 298 U/L (333-699) L 03/30/18 19:56 Total Creatine Kinase 72 U/L (35-230) 03/30/18 19:56 Troponin I < 0.01 ng/mL 03/30/18 19:56 Total Protein 7.0 g/dL (5.8-8.3) 03/31/18 06:00 Albumin 4.0 g/dL (3.0-4.8) 03/31/18 06:00 Globulin 3.0 gm/dL 03/31/18 06:00 Albumin/Globulin Ratio 1.3 (1.1-1.8) 03/31/18 06:00 Triglycerides 100 mg/dL (35-160) 03/31/18 06:00 Cholesterol 133 mg/dL (130-200) 03/31/18 06:00 LDL Cholesterol Direct 50 mg/dL (0-129) 03/31/18 06:00 HDL Cholesterol 49 mg/dL (29-60) 03/31/18 06:00 TSH 3rd Generation 2.32 mIU/mL (0.46-4.68) 03/31/18 06:00 - Hospital Course Hospital Course: Pt seen and examined. I have reviewed the note of the biomedical equipment tech and agree with it. I have discussed the assessment and plan with the resident. I have reviewed the patient's labs and medications. Pt with CP and it is resolved. Pt had stress test done by cardiology. Initial results are negative. She will go home. I have placed her on Eliquis and Sotalol .
--- NOTE | 2018-04-02 18:31 | CARD ---
APPROVED REPORT Date of service: 04/02/2018 Protocol: LEXISCAN Test Type: Lexiscan Sestamibi Stress Test Attending Physician: Dr. Magdalena Escobar Referring Physician: Dr. Dom Nj Test Indications: Chest Pain Height:5 ft 1 in Weight:191lbs Medical History: 78 y/o female. Hx of chest pain, diabetic, hypertension,Atrial Fibrillation Target HR: 144 bpm Resting ECG: RSR. Resting Heart Rate: 61 bpm Resting Blood Pressure: 180/70mmHg Submaximum (85%): 122 bpm PROCEDURE Pharmacologic stress testing was performed using 0.4mg per 5ml of regadenoson given intravenously over 7-10 seconds. POST EXERCISE Reason for Termination: Protocol completed Target HR: No Max HR: 60 bpm 57% of Maximum Predicted HR: 144 bpm Exercise duration: 00:30 min:sec, 0 Stage Exercise capacity: 1.0METs Max Blood Pressure: 180/70mmHg Blood Pressure response to exercise: resting hypertension - appropriate response Heart Rate response to exercise: appropriate Chest Pain: No, none Angina index: 0 Arrhythmia: No, none ST Change: No, none Deviation: 0 mm INTERPRETATION Stress EKG Conclusion: IV LEXISCAN NUCLEAR STRESS TEST NEGATIVE FOR CHEST PAIN AND NEGATIVE FOR ST-T CHANGES. NUCLEAR SCAN REPORT PENDING. Signed by Magdalena Escobar Electronically Approved: 04/02/2018 12:57:39 EXAM: Myocardial Perfusion REST/STRESS Stress Test Type: Pharmacologic Imaging Protocol Rest Spect myocardial perfusion imaging was performed in supine position 45 minutes following the injection of 10.6 mCi of Tc-99 Myoview. At peak stress, the patient was injected intravenously with 30.2mCi of Tc-99 tetrofosmin after an infusion time of 0 minutes and 10 seconds. Gated Stress Spect was performed 65 minutes after intravenous Tc-99 Myoview injection. The images were gated to evaluate regional wall motion and calculate ventricular ejection fraction.Images were reconstructed using backfilter projection method in short horizontal and verticle long axis. Spect slices were generated. LV Perfusion The quality of the study is good. The left ventricle is normal in size. The right ventricle is unremarkable. The lung uptake is within normal limits. The distribution of tracer reveals normal uptake pattern throughout the LV myocardium on the stress study. The rest myocardial perfusion study shows no significant change. Wall Motion Wall motion study shows good contractility of the left ventricle. LVEF = 63%. Conclusion 1. Normal SPECT myocardial perfusion study. 2. Normal gated wall motion of the left ventricle.
== END 2018-04-02 15:51 | disposition home or self-care (01) | DRG 310 ==
LOC: ED 05:45 → ERH 08:13 → 2RNO 08:46 → OBSVTOIN 04-01 11:11
PROVIDERS: ADMIT Internal Medicine Nephrology; ATTEND Internal Medicine Nephrology
DX: I48.0 Paroxysmal atrial fibrillation (principal); R07.89 Other chest pain; I48.92 Unspecified atrial flutter; E11.9 Type 2 diabetes mellitus without complications; I10 Essential (primary) hypertension; R00.2 Palpitations; E05.90 Thyrotoxicosis, unspecified without thyrotoxic crisis or storm; Z91.19 Patient's noncompliance with other medical treatment and regimen; E78.5 Hyperlipidemia, unspecified; Z79.01 Long term (current) use of anticoagulants; Z87.01 Personal history of pneumonia (recurrent); Z89.422 Acquired absence of other left toe(s); Z90.710 Acquired absence of both cervix and uterus; I08.8 Other rheumatic multiple valve diseases